=== PATIENT | male | born 1990 | race Two or more races ===

== ENCOUNTER 2020-04-13 16:23 | Emergency (ER) | payer MEDICAID, OTHER ==
[~2020-04-13] VITALS: Ht 180.3 cm; Wt 112.0 kg
[2020-04-13] MEDS ORDERED: IPRATROPIUM BROM 0.5 MG/2.5ML INH SOL NEB ONE (17:15)
[2020-04-13] MEDS ORDERED: SODIUM CHLORIDE 0.9% 1,000 ML IV ONE (17:15)
[2020-04-13] MEDS ORDERED: ALBUTEROL SULF 2.5 MG/0.5ML(0.5%) NEB SOLN NEB ONE (17:15)
[2020-04-13 18:10] LABS: Basophils # (auto) 0.1 10 ^3/uL (0-0.2); Basophils % (auto) 0.8 % (0.0-2.0); Eosinophils # (auto) 0.2 10 ^3/uL (0-0.8); Eosinophils % (auto) 2.5 % (0.0-7.0); Hematocrit 44.2 % (41.0-53.0); Lymphocytes # (auto) 1.8 10 ^3/uL (0.4-5.4); Lymphocytes % (auto) 26.5 % (10.0-50.0); Mean Corpuscular Hemoglobin 28.7 pg (28.0-32.0); Mean Corpuscular Hgb Conc. 33.9 g/dL (32.0-36.0); Mean Corpuscular Volume 84.6 fL (80.0-100.0); Monocytes # (auto) 0.4 10 ^3/uL (0-1.3); Monocytes % (auto) 5.8 % (0.0-12.0); Neutrophils # (auto) 4.3 10 ^3/uL (1.6-8.6); Neutrophils % (auto) 64.4 % (37.0-80.0); Platelet Count (auto) 210 10^3/uL (140-450); Red Blood Cells 5.23 10^6/uL (4.5-5.90); Red Cell Distribution Width 14.6 % (11.8-14.3); White Blood Cell 6.7 10^3/uL (4.4-10.8)
[2020-04-13 18:27] LABS: BUN/Creatinine Ratio 10.4; Calcium 8.2 mg/dL (8.5-10.1); Magnesium 2.1 mg/dL (1.6-2.6); Potassium 3.6 mmol/L (3.5-5.1)
[2020-04-13 18:31] VITALS: BP 107/86
== END 2020-04-13 19:27 | disposition home or self-care (01) ==
LOC: ER 16:23
DX: J45.41 Moderate persistent asthma with (acute) exacerbation (principal)
CPT/HCPCS: 36415; 71046; 80048; 83735; 85025; 94640; 96360; 99284; J7030; J7644

== ENCOUNTER 2020-05-01 01:27 | Emergency (ER) | payer MEDICAID ==
[~2020-05-01] VITALS: Ht 188 cm; Wt 108.0 kg
[2020-05-01] MEDS ORDERED: ALBUTEROL SULF 2.5 MG/0.5ML(0.5%) NEB SOLN NEB ONE (01:30)
[2020-05-01] MEDS ORDERED: IPRATROPIUM BROM 0.5 MG/2.5ML INH SOL NEB ONE (01:30)
[2020-05-01 03:50] VITALS: BP 121/77
[2020-05-01] MEDS ORDERED: methylPREDNISolone SOD SUCC 125 MG/2 ML VL IM ONE (04:30)
== END 2020-05-01 04:53 | disposition home or self-care (01) ==
LOC: ER 01:27
DX: J45.901 Unspecified asthma with (acute) exacerbation (principal); E66.9 Obesity, unspecified; L21.0 Seborrhea capitis; Z68.30 Body mass index [BMI] 30.0-30.9, adult
CPT/HCPCS: 94640; 96372; 99283; J2930; J7644

== ENCOUNTER 2022-08-02 11:22 | Emergency (ER) | payer MEDICAID ==
[~2022-08-02] VITALS: Ht 180.3 cm; Wt 115.4 kg
[2022-08-02 12:57] VITALS: BP 132/80
[2022-08-02] MEDS ORDERED: LIDOCAINE 1% HCL (LOCAL ANESTH.) INJ 20ML MDV IJ ONE (13:00)
[2022-08-02] MEDS ORDERED: IBUP800T27 PO (13:27)
[2022-08-02] MEDS ORDERED: BACDST PO (13:27)
[2022-08-02] MEDS ORDERED: cefTRIAXone SOD 1,000 MG VL IM ONE (13:30)
== END 2022-08-02 13:46 | disposition home or self-care (01) ==
LOC: ER 11:22
DX: L02.01 Cutaneous abscess of face (principal); J45.909 Unspecified asthma, uncomplicated; Z79.1 Long term (current) use of non-steroidal anti-inflammatories (NSAID); Z79.899 Other long term (current) drug therapy
CPT/HCPCS: 10060; 87205; 96372; 99283; J0696; J2001

== ENCOUNTER 2022-08-03 07:03 | Emergency (ER) | payer MEDICAID ==
[~2022-08-03] VITALS: Ht 180.3 cm; Wt 112.7 kg
[~2022-08-03 07:03] MED LIST: BACDST PO; IBUP800T27 PO
[2022-08-03 08:01] VITALS: BP 124/80
== END 2022-08-03 08:03 | disposition home or self-care (01) ==
LOC: ER 07:03
DX: Z48.00 Encounter for change or removal of nonsurgical wound dressing (principal)

== ENCOUNTER 2022-08-04 12:00 | Emergency (ER) | payer MEDICAID ==
[~2022-08-04] VITALS: Ht 180.3 cm; Wt 112.7 kg
[2022-08-04 12:36] VITALS: BP 136/80
== END 2022-08-04 14:05 | disposition home or self-care (01) ==
LOC: ER 12:00
DX: L02.01 Cutaneous abscess of face (principal); J45.909 Unspecified asthma, uncomplicated; Z79.1 Long term (current) use of non-steroidal anti-inflammatories (NSAID); Z79.899 Other long term (current) drug therapy

== ENCOUNTER 2023-05-09 03:28 | Emergency (ER) | payer MEDICAID ==
[~2023-05-09] VITALS: Ht 180.3 cm; Wt 106.8 kg
[~2023-05-09 03:28] MED LIST changes: +IBUP-1456 PO; -IBUP800T27 PO
[2023-05-09 04:36] LABS: Basophils # (auto) 0 10 ^3/uL (0-0.2); Basophils % (auto) 0.4 % (0.0-2.0); Eosinophils # (auto) 0.1 10 ^3/uL (0-0.8); Eosinophils % (auto) 1.1 % (0.0-7.0); Hematocrit 45.4 % (41.0-53.0); Hemoglobin 15.4 g/dL (13.5-17.5); Lymphocytes # (auto) 2.7 10 ^3/uL (0.4-5.4); Lymphocytes % (auto) 48.9 % (10.0-50.0); Mean Corpuscular Hemoglobin 28.2 pg (28.0-32.0); Mean Corpuscular Hgb Conc. 33.9 g/dL (32.0-36.0); Mean Corpuscular Volume 83.1 fL (80.0-100.0); Monocytes # (auto) 0.4 10 ^3/uL (0-1.3); Neutrophils # (auto) 2.4 10 ^3/uL (1.6-8.6); Neutrophils % (auto) 42.6 % (37.0-80.0); Nucleated Red Blood Cells % 0.2 %; Red Blood Cells 5.46 10^6/uL (4.5-5.90); Red Cell Distribution Width 14.4 % (11.8-14.3); White Blood Cell 5.6 10^3/uL (4.4-10.8)
[2023-05-09 04:38] LABS: Urine Bacteria NONE SEEN /hpf (None Seen); Urine Blood TRACE /uL (Negative); Urine Clarity Clear (Clear); Urine Color Yellow (Yellow); Urine Protein, UAD TRACE (Negative); Urine Urobilinogen Normal (Negative); Urine WBC <1 /hpf (0 - 3); Urine pH 5.5 (5.0-8.0)
[2023-05-09 04:49] LABS: Alanine Aminotransferase 19 U/L (7-40); Albumin 4.9 g/dL (3.2-4.8); Alkaline Phosphatase 68 U/L (46-116); Anion Gap 6 (5-15); Aspartate Aminotransferase 13 U/L (13-40); BUN/Creatinine Ratio 8.4 (10.0-20.0); Bilirubin, Total 0.5 mg/dL (0.2-1.0); Blood Urea Nitrogen 8 mg/dL (9-23); Calcium 8.9 mg/dL (8.7-10.4); Carbon Dioxide 29 mmol/L (20-30); Chloride 106 mmol/L (98-107); Glucose 97 mg/dL (74-106); Lipase 43 U/L (12-53); Potassium 3.5 mmol/L (3.5-5.1); Sodium 141 mmol/L (136-145); Total Protein 7.4 g/dL (5.7-8.2)
[2023-05-09] MEDS ORDERED: PANTOPRAZOLE 40 MG TAB PO ONE (07:00)
[2023-05-09] MEDS ORDERED: PANT40TA2 PO (08:03)
[2023-05-09] MEDS ORDERED: CIPR-173 PO (08:03)
[2023-05-09 08:19] VITALS: PULSE 83; RESP 15; O2SAT 94
[2023-05-09 08:50] VITALS: BP 120/69; PULSE 83; RESP 15; TEMP 98.2; O2SAT 94
== END 2023-05-09 08:03 | disposition home or self-care (01) ==
LOC: ER 03:28
DX: N39.0 Urinary tract infection, site not specified (principal); J45.909 Unspecified asthma, uncomplicated; Z90.89 Acquired absence of other organs; Z79.1 Long term (current) use of non-steroidal anti-inflammatories (NSAID); Z79.2 Long term (current) use of antibiotics; Z79.899 Other long term (current) drug therapy
CPT/HCPCS: 36415; 74176; 80053; 81001; 83690; 85025

== ENCOUNTER 2023-06-28 08:10 | Inpatient (IN) | payer MEDICAID ==
[~2023-06-28] VITALS: Ht 180.3 cm; Wt 108.7 kg
[~2023-06-28 08:10] MED LIST changes: +CIPR-173 PO; +PANT40TA2 PO
[2023-06-28 08:47] LABS: Urine Epithelial Cast None Seen /hpf (<5)
[2023-06-28 08:59] LABS: Basophils # (auto) 0 10 ^3/uL (0-0.2); Basophils % (auto) 0.4 % (0.0-2.0); Eosinophils # (auto) 0.1 10 ^3/uL (0-0.8); Eosinophils % (auto) 0.8 % (0.0-7.0); Hematocrit 45.4 % (41.0-53.0); Hemoglobin 15.1 g/dL (13.5-17.5); Lymphocytes # (auto) 1.6 10 ^3/uL (0.4-5.4); Lymphocytes % (auto) 14.9 % (10.0-50.0); Mean Corpuscular Hgb Conc. 33.2 g/dL (32.0-36.0); Mean Corpuscular Volume 84.2 fL (80.0-100.0); Monocytes # (auto) 0.7 10 ^3/uL (0-1.3); Monocytes % (auto) 6.6 % (0.0-12.0); Neutrophils # (auto) 8.2 10 ^3/uL (1.6-8.6); Neutrophils % (auto) 77.3 % (37.0-80.0); Red Blood Cells 5.39 10^6/uL (4.5-5.90); Red Cell Distribution Width 14.6 % (11.8-14.3); White Blood Cell 10.6 10^3/uL (4.4-10.8)
[2023-06-28 09:06] LABS: Urine Bacteria NONE SEEN /hpf (None Seen); Urine Blood TRACE /uL (Negative); Urine Clarity Clear (Clear); Urine Color Yellow (Yellow); Urine Hyaline Cast FEW /lpf (0 - 2); Urine Mucus FEW (None Seen); Urine Protein, UAD 1+ (Negative); Urine Specific Gravity 1.029 (1.001-1.035); Urine WBC 3 /hpf (0 - 3)
[2023-06-28 09:10] LABS: Anion Gap 7 (5-15); Calcium 9.3 mg/dL (8.5-10.1); Carbon Dioxide 30 mmol/L (20-30); Chloride 103 mmol/L (98-107); Potassium 3.2 mmol/L (3.5-5.1); Sodium 140 mmol/L (136-145)
[2023-06-28 09:16] LABS: Alanine Aminotransferase 40 U/L (7-40); Albumin 4.7 g/dL (3.2-4.8); Alkaline Phosphatase 73 U/L (46-116); Aspartate Aminotransferase 41 U/L (13-40); BUN/Creatinine Ratio 6.9 (10.0-20.0); Bilirubin, Total 1.5 mg/dL (0.2-1.0); Blood Urea Nitrogen 8 mg/dL (9-23); Glucose 103 mg/dL (74-106); Total Protein 7.2 g/dL (5.7-8.2)
[2023-06-28] MEDS ORDERED: LORazepam 0.5 MG TAB PO ONE (15:15)
[2023-06-28] MEDS ORDERED: ONDANSETRON ODT 4 MG TAB PO ONE (15:15)
[2023-06-28] MEDS ORDERED: MAALOX PLUS or MAALOX 30 ML PO ONE (15:15)
[2023-06-28] MEDS ORDERED: LIDOCAINE VISCOUS 2% 15ML UD PO ONE (15:15)
[2023-06-28 15:41] LABS: Blood Alcohol < 3.0 mg/dL (<10)
[2023-06-28 15:51] LABS: Lipase 39 U/L (12-53)
[2023-06-28] MEDS ORDERED: POTASSIUM CHL 20 Meq TABLET PO ONE (18:00)
[2023-06-28] MEDS ORDERED: PIPERACILLIN-TAZOB 3.375GM 100 ML IV ONE (18:00)
[2023-06-28] MEDS ORDERED: SODIUM CHLORIDE 0.9% 1,000 ML IV ONE (18:00)
[2023-06-28 19:24] LABS: Amphetamine Screen, Urine Neg (NEGATIVE); Barbiturate Scree,Urine Neg (NEGATIVE); Benzodiazephine Screen, Urine Neg (NEGATIVE); Cannabinoid Screen, Urine Neg (NEGATIVE); Cocaine Screen, Urine Neg (NEGATIVE); Opiate Scree,Urine Neg (NEGATIVE); Phencyclidine Screen, Urine Neg (NEGATIVE)
[2023-06-28] MEDS ORDERED: IOHEXOL 300 MG/ML 100ML BOTTLE IJ ONE (21:04)
[2023-06-29] VITALS (7 sets, daily range): BP systolic 90–123; BP diastolic 47–83; PULSE 58–114; RESP 17–20; TEMP 97.6–98.6; O2SAT 91–98
[2023-06-29] MEDS ORDERED: DEXTROSE (50%) 50ML SYRG IV PRN
[2023-06-29] MEDS ORDERED: NITROGLYCERIN 0.4 MG SL TAB SL PRN
[2023-06-29] MEDS ORDERED: HYDROcodone-ACET 5/325MG TAB PO PRN
[2023-06-29] MEDS ORDERED: ONDANSETRON HCL 4 MG/2 ML VIAL IV PRN
[2023-06-29] MEDS ORDERED: MORPHINE SULFATE INJ 2 MG/ml SYRG IV PRN ×2
[2023-06-29] MEDS: InsuLIN REG 1unit/0.01ml Soln (100units/ml) SC SCH ×4 (02:09→18:00)
[2023-06-29] MEDS: ACCU-CHEK COMFORT CURVE STRIP VI SCH ×4 (02:10→18:00)
[2023-06-29] MEDS: D5W/SOD CHL 0.45% 1,000 ML IV SCH ×3 (02:27→20:00)
[2023-06-29] MEDS ORDERED: HYDROcodone-ACET 5/325MG TAB ONE (02:38)
[2023-06-29] MEDS: HYDROcodone-ACET 5/325MG TAB PO PRN ×2 (02:40→14:33)
[2023-06-29] MEDS: PIPERACILLIN-TAZOB 3.375GM 100 ML IV SCH ×3 (05:46→21:39)
[2023-06-29] MEDS ORDERED: PIPERACILLIN-TAZOB 3.375GM 100 ML IV SCH ×2 (06:00)
[2023-06-29 06:23] LABS: Chloride 103 mmol/L (98-107); Potassium 3.4 mmol/L (3.5-5.1); Sodium 138 mmol/L (136-145)
[2023-06-29 06:24] LABS: Anion Gap 7 (5-15); Carbon Dioxide 28 mmol/L (20-30)
[2023-06-29 06:29] LABS: Glucose 97 mg/dL (74-106)
[2023-06-29 06:30] LABS: BUN/Creatinine Ratio 10.9 (10.0-20.0); Blood Urea Nitrogen 11 mg/dL (9-23)
[2023-06-29 06:35] LABS: Basophils # (auto) 0 10 ^3/uL (0-0.2); Basophils % (auto) 0.3 % (0.0-2.0); Eosinophils # (auto) 0 10 ^3/uL (0-0.8); Eosinophils % (auto) 0.5 % (0.0-7.0); Hematocrit 42.5 % (41.0-53.0); Hemoglobin 14.3 g/dL (13.5-17.5); Lymphocytes # (auto) 2.2 10 ^3/uL (0.4-5.4); Mean Corpuscular Hemoglobin 28.3 pg (28.0-32.0); Mean Corpuscular Hgb Conc. 33.6 g/dL (32.0-36.0); Mean Corpuscular Volume 84.3 fL (80.0-100.0); Monocytes # (auto) 0.7 10 ^3/uL (0-1.3); Monocytes % (auto) 8.4 % (0.0-12.0); Neutrophils # (auto) 5.7 10 ^3/uL (1.6-8.6); Neutrophils % (auto) 65.8 % (37.0-80.0); Nucleated Red Blood Cells % 0.1 %; Red Blood Cells 5.04 10^6/uL (4.5-5.90); Red Cell Distribution Width 14.4 % (11.8-14.3); White Blood Cell 8.7 10^3/uL (4.4-10.8)
[2023-06-29] MEDS ORDERED: POTASSIUM CHL 20 Meq TABLET PO ONE (08:30)
[2023-06-29 12:15] LABS: INR 1.14 (0.9-1.15); Partial Thromboplastin Time 32.5 SEC (24.5-34.5); Prothrombin Time 11.9 sec (9.3-11.8)
[2023-06-29] MEDS: ENOXAPARIN SOD 40 MG/0.4 ML SYRINGE SC SCH (14:18)
[2023-06-29] MEDS: PANTOPRAZOLE 40 MG/10 ML VIAL INJ IV SCH (14:18)
[2023-06-30] VITALS (10 sets, daily range): BP systolic 110–115; BP diastolic 65–71; PULSE 72–89; RESP 18–20; TEMP 97.8–98.8; O2SAT 92–98
[2023-06-30] MEDS: PIPERACILLIN-TAZOB 3.375GM 100 ML IV SCH ×3 (05:00→22:46)
[2023-06-30] MEDS: InsuLIN REG 1unit/0.01ml Soln (100units/ml) SC SCH ×3 (06:00→12:00)
[2023-06-30] MEDS: D5W/SOD CHL 0.45% 1,000 ML IV SCH ×2 (06:00→16:00)
[2023-06-30] MEDS: ACCU-CHEK COMFORT CURVE STRIP VI SCH ×3 (06:00→12:05)
[2023-06-30] MEDS: HYDROcodone-ACET 5/325MG TAB PO PRN ×2 (06:16→20:33)
[2023-06-30] MEDS: DOCUSATE SOD 100 MG CAP PO PRN (06:18)
[2023-06-30 06:43] LABS: Basophils # (auto) 0 10 ^3/uL (0-0.2); Basophils % (auto) 0.5 % (0.0-2.0); Eosinophils # (auto) 0.2 10 ^3/uL (0-0.8); Eosinophils % (auto) 2.3 % (0.0-7.0); Hematocrit 40.4 % (41.0-53.0); Hemoglobin 13.7 g/dL (13.5-17.5); Lymphocytes # (auto) 1.7 10 ^3/uL (0.4-5.4); Lymphocytes % (auto) 25.5 % (10.0-50.0); Mean Corpuscular Hemoglobin 28.5 pg (28.0-32.0); Monocytes # (auto) 0.5 10 ^3/uL (0-1.3); Monocytes % (auto) 7.6 % (0.0-12.0); Neutrophils # (auto) 4.3 10 ^3/uL (1.6-8.6); Neutrophils % (auto) 64.1 % (37.0-80.0); Red Blood Cells 4.81 10^6/uL (4.5-5.90); Red Cell Distribution Width 14.6 % (11.8-14.3); White Blood Cell 6.7 10^3/uL (4.4-10.8)
[2023-06-30 06:54] LABS: INR 1.12 (0.9-1.15); Prothrombin Time 11.7 sec (9.3-11.8)
[2023-06-30 07:08] LABS: Alanine Aminotransferase 27 U/L (7-40); Albumin 4.2 g/dL (3.2-4.8); Alkaline Phosphatase 57 U/L (46-116); Anion Gap 10 (5-15); Aspartate Aminotransferase 19 U/L (13-40); BUN/Creatinine Ratio 9.5 (10.0-20.0); Bilirubin, Total 0.8 mg/dL (0.2-1.0); Blood Urea Nitrogen 9 mg/dL (9-23); Carbon Dioxide 26 mmol/L (20-30); Chloride 104 mmol/L (98-107); Glucose 73 mg/dL (74-106); Potassium 3.3 mmol/L (3.5-5.1); Sodium 140 mmol/L (136-145); Total Protein 6.5 g/dL (5.7-8.2)
[2023-06-30] MEDS: PANTOPRAZOLE 40 MG/10 ML VIAL INJ IV SCH (09:57)
[2023-06-30] MEDS: ENOXAPARIN SOD 40 MG/0.4 ML SYRINGE SC SCH (09:58)
[2023-06-30] MEDS: IPRATROPIUM BROM 0.5 MG/2.5ML INH SOL NEB SCH (21:25)
[2023-06-30] MEDS: ALBUTEROL SULF 2.5 MG/0.5ML(0.5%) NEB SOLN NEB SCH (21:25)
[2023-07-01] VITALS (14 sets, daily range): BP systolic 104–140; BP diastolic 67–87; PULSE 71–92; RESP 16–20; TEMP 98–99; O2SAT 71–100
[2023-07-01] MEDS: D5W/SOD CHL 0.45% 1,000 ML IV SCH ×4 (02:00→12:37)
[2023-07-01] MEDS: PIPERACILLIN-TAZOB 3.375GM 100 ML IV SCH (05:30)
[2023-07-01] MEDS: IPRATROPIUM BROM 0.5 MG/2.5ML INH SOL NEB SCH ×3 (07:32→22:38)
[2023-07-01] MEDS: ALBUTEROL SULF 2.5 MG/0.5ML(0.5%) NEB SOLN NEB SCH ×3 (07:33→22:38)
[2023-07-01] MEDS: ENOXAPARIN SOD 40 MG/0.4 ML SYRINGE SC SCH (09:03)
[2023-07-01] MEDS: PANTOPRAZOLE 40 MG/10 ML VIAL INJ IV SCH (11:44)
[2023-07-01] MEDS: HYDROcodone-ACET 5/325MG TAB PO PRN ×3 (11:44→20:28)
[2023-07-01] MEDS ORDERED: PROPOFOL 10 MG/ML 20 ML IV ONE (12:19)
[2023-07-01] MEDS ORDERED: DexAMETHasone SOD PHOS 10MG/1ML VIAL INJ ONE (12:19)
[2023-07-01] MEDS ORDERED: ROCURONIUM 10MG/ML 10ML VIAL IV ONE (12:19)
[2023-07-01] MEDS ORDERED: LIDOCAINE 2% (LOCAL ANESTH.) PF 5ml SDV ONE ×2 (12:19→13:59)
[2023-07-01] MEDS ORDERED: ONDANSETRON HCL 4 MG/2 ML VIAL ONE (12:19)
[2023-07-01] MEDS ORDERED: KETOROLAC TROMETH 30 MG/ML 1ML VIAL ONE (12:19)
[2023-07-01] MEDS ORDERED: GLYCOPYRROLATE 0.2 MG/ML 1ML VIAL ONE (12:19)
[2023-07-01] MEDS ORDERED: fentaNYL CITRATE 100 MCG/2 ML VL ONE (12:20)
[2023-07-01] MEDS ORDERED: SUGAMMADEX 200mg/2ml Vial (100MG/ML) IV ONE (12:20)
[2023-07-01] MEDS ORDERED: LIDOCAINE 1% HCL (LOCAL ANESTH.) INJ 20ML MDV ONE (12:22)
[2023-07-01] MEDS ORDERED: BUPIVACAINE 0.25% INJ 50ML VIAL ONE (12:22)
[2023-07-01] MEDS ORDERED: CELECOXIB 100 MG CAP PO ONE (12:30)
[2023-07-01] MEDS ORDERED: ACETAMINOPHEN IV 1000 MG/100ML (10MG/ML) IV ONE (12:30)
[2023-07-01] MEDS ORDERED: GABAPENTIN 400 MG CAP PO ONE (12:30)
[2023-07-01] MEDS ORDERED: ceFAZolin 2 GM/D5W100ml 100 ML IV ONE (12:39)
[2023-07-01] MEDS ORDERED: GABAPENTIN 400 MG CAP ONE (12:44)
[2023-07-01] MEDS ORDERED: ACETAMINOPHEN IV 100 ML IV ONE (12:44)
[2023-07-01] MEDS ORDERED: CELECOXIB 100 MG CAP ONE (12:44)
[2023-07-01] MEDS ORDERED: ONDANSETRON HCL 4 MG/2 ML VIAL IV PRN (14:45)
[2023-07-01] MEDS ORDERED: fentaNYL CITRATE 100 MCG/2 ML VL IV PRN (14:45)
[2023-07-01] MEDS ORDERED: hydrALAZINE HCL 20 MG/ML VL IV PRN (14:45)
[2023-07-01] MEDS ORDERED: HYDROmorphone HCL 2 MG/ML VL/or syr IV PRN (14:45)
[2023-07-01] MEDS ORDERED: FLUMAZENIL 0.1 MG/ML INJ 10ML MDV IV PRN (14:45)
[2023-07-01] MEDS ORDERED: NALOXONE HCL 0.4 MG/ML VIAL IV PRN (14:45)
[2023-07-01] MEDS ORDERED: ePHEDrine SULFATE 50 MG/ML AMP IV PRN (14:45)
[2023-07-01] MEDS ORDERED: oxyCODONE HCL 5MG TAB PO PRN (14:45)
[2023-07-01] MEDS ORDERED: LABETALOL HCL 5 MG/ML 4ML SYRINGE IV PRN (14:45)
[2023-07-01] MEDS ORDERED: ALBUTEROL SULF 2.5 MG/0.5ML(0.5%) NEB SOLN NEB ONE (14:45)
[2023-07-01] MEDS: metroNIDAZOLE 500MG/100ML 100 ML IV SCH ×2 (16:01→21:37)
[2023-07-02] VITALS (15 sets, daily range): BP systolic 102–139; BP diastolic 58–87; PULSE 66–89; RESP 16–20; TEMP 97.6–98.9; O2SAT 93–100
[2023-07-02] MEDS: HYDROcodone-ACET 5/325MG TAB PO PRN ×2 (03:25→09:35)
[2023-07-02] MEDS: metroNIDAZOLE 500MG/100ML 100 ML IV SCH (05:36)
[2023-07-02 05:48] LABS: Hematocrit 39.8 % (41.0-53.0); Hemoglobin 13.4 g/dL (13.5-17.5)
[2023-07-02 06:12] LABS: Alanine Aminotransferase 27 U/L (7-40); Albumin 4.2 g/dL (3.2-4.8); Alkaline Phosphatase 54 U/L (46-116); Anion Gap 10 (5-15); Aspartate Aminotransferase 23 U/L (13-40); Calcium 8.9 mg/dL (8.5-10.1); Carbon Dioxide 25 mmol/L (20-30); Chloride 106 mmol/L (98-107); Glucose 126 mg/dL (74-106); Potassium 3.6 mmol/L (3.5-5.1); Sodium 141 mmol/L (136-145)
[2023-07-02 06:13] LABS: Bilirubin, Total 0.4 mg/dL (0.2-1.0); Total Protein 6.5 g/dL (5.7-8.2)
[2023-07-02] MEDS: IPRATROPIUM BROM 0.5 MG/2.5ML INH SOL NEB SCH ×3 (06:14→19:20)
[2023-07-02] MEDS: ALBUTEROL SULF 2.5 MG/0.5ML(0.5%) NEB SOLN NEB SCH ×3 (06:14→19:20)
[2023-07-02 06:17] LABS: Blood Urea Nitrogen < 5 mg/dL (9-23)
[2023-07-02] MEDS ORDERED: cefTRIAXone 1GM/50ML D5W 50 ML IV SCH (09:00)
[2023-07-02] MEDS: PANTOPRAZOLE 40 MG/10 ML VIAL INJ IV SCH (09:35)
[2023-07-02] MEDS: ENOXAPARIN SOD 40 MG/0.4 ML SYRINGE SC SCH (09:36)
[2023-07-02] MEDS: DOCUSATE SOD 100 MG CAP PO PRN (09:46)
[2023-07-02] MEDS: AMOXICILLIN/CLAVULAN 500 MG TAB PO SCH ×2 (15:30→22:31)
[2023-07-02] MEDS: ACETAMINOPHEN 325 MG TAB PO PRN (18:05)
[2023-07-03] VITALS (10 sets, daily range): BP systolic 106–116; BP diastolic 60–70; PULSE 72–100; RESP 15–20; TEMP 36.6; O2SAT 93–96
[2023-07-03] MEDS: AMOXICILLIN/CLAVULAN 500 MG TAB PO SCH ×2 (06:07→15:07)
[2023-07-03] MEDS: IPRATROPIUM BROM 0.5 MG/2.5ML INH SOL NEB SCH ×2 (07:18→13:53)
[2023-07-03] MEDS: ALBUTEROL SULF 2.5 MG/0.5ML(0.5%) NEB SOLN NEB SCH ×2 (07:18→13:53)
[2023-07-03] MEDS: ENOXAPARIN SOD 40 MG/0.4 ML SYRINGE SC SCH (09:11)
[2023-07-03] MEDS: ACETAMINOPHEN 325 MG TAB PO PRN (09:11)
[2023-07-03] MEDS ORDERED: AMOX500T86 PO (14:14)
[2023-07-03] MEDS ORDERED: SENN-105 PO (14:14)
== END 2023-07-03 15:20 | disposition home or self-care (01) | DRG 263 ==
LOC: ER 08:10 → OVERFLOW 06-29 00:03 → EAST 06-29 04:00 → WEST WING 07-02 17:07
PROVIDERS: ADMIT Nurse Practitioner Family; ATTEND Nurse Practitioner Family
PROC: 0FN44ZZ Release Gallbladder, Percutaneous Endoscopic Approach (ICD-10-PCS; 2023-07-01)
PROC: 0FT44ZZ Resection of Gallbladder, Percutaneous Endoscopic Approach (ICD-10-PCS; principal; 2023-07-01 13:01)
DX: K80.00 Calculus of gallbladder with acute cholecystitis without obstruction (principal); K82.A1 Gangrene of gallbladder in cholecystitis; J45.909 Unspecified asthma, uncomplicated; E66.9 Obesity, unspecified; Z82.5 Family history of asthma and other chronic lower respiratory diseases; Z68.32 Body mass index [BMI] 32.0-32.9, adult
CPT/HCPCS: 36415; 71045; 74021; 74177; 76705; 80048; 80053; 80307; 80320; 81001; 82962; 83690; 84484; 85014; 85018; 85025; 85610; 85730; 86850; 86900; 86901; 94640; C9113; G0378; J0131; J1100; J1885; J2001; J2405; J2543; J2704; J3490; Q0162